=== PATIENT | female | born 1950 | race Caucasian/White ===

== ENCOUNTER → 2018-07-24 | Outpatient (CLI) | payer MEDICARE | END | disposition home or self-care (01) | LOC: EDSTATUS 07-18 17:05 → ROC 07:30 | PROVIDERS: ATTEND Radiology Radiation Oncology | DX: Z08 Encounter for follow-up examination after completed treatment for malignant neoplasm (principal); C50.512 Malignant neoplasm of lower-outer quadrant of left female breast; C54.1 Malignant neoplasm of endometrium | CPT/HCPCS: G0463 ==

== ENCOUNTER → 2018-12-03 | Outpatient (CLI) | payer MEDICARE | END | disposition home or self-care (01) | LOC: ROC 07:42 | PROVIDERS: ATTEND Radiology Radiation Oncology | DX: C50.512 Malignant neoplasm of lower-outer quadrant of left female breast (principal); C56.2 Malignant neoplasm of left ovary; C56.1 Malignant neoplasm of right ovary; C57.02 Malignant neoplasm of left fallopian tube; C57.01 Malignant neoplasm of right fallopian tube; Z98.890 Other specified postprocedural states | CPT/HCPCS: G0463 ==

== ENCOUNTER → 2020-05-08 | Outpatient (CLI) | payer MEDICARE | END | disposition home or self-care (01) | LOC: ROC 09:26 | PROVIDERS: ATTEND Radiology Radiation Oncology | DX: Z08 Encounter for follow-up examination after completed treatment for malignant neoplasm (principal); Z85.42 Personal history of malignant neoplasm of other parts of uterus; Z85.3 Personal history of malignant neoplasm of breast; Z85.43 Personal history of malignant neoplasm of ovary | CPT/HCPCS: G2012 ==